=== PATIENT | male | born 1960 | race American Indian/Alaskan Native ===

== ENCOUNTER 2016-09-05 12:56 | Outpatient (CLI) | payer OTHER ==
--- NOTE | 2016-09-05 15:44 | Ultrasound Report ---
ABDOMINAL ULTRASOUND: 09/05/16 12:56:00 CLINICAL: Abdominal pain. FINDINGS: High-resolution ultrasound demonstrated an enlarged liver with moderate diffuse increased echogenicity. A hypoechoic irregular area in the lateral segment of the left lobe measures 1.9 x 1.6 x 2.0 cm. Normal hepatic vasculature and inferior vena cava. Normal gallbladder and bile ducts. Patellar wall measures 1.4 mm. The common bile duct measures 3.4 mm diameter. The pancreas was well imaged and normal Normal abdominal aorta. A normal spleen measured 8.9cm. Normal kidneys with normal echogenicity and normal non-dilated renal collecting systems and ureters. The right kidney measured 9.7 x 5.0 x 4.8cm. The left kidney measured 9.8 x 6.4 x 4.6cm. No renal mass or calculus. No ascites or mass. IMPRESSION: 1. Hepatic steatosis and hepatomegaly. 2. A 2 cm left hepatic mass is most likely a focus of fatty sparing. Consider CT or MRI for further evaluation. 3. No cholelithiasis.
== END 2016-09-05 12:57 | disposition home or self-care (01) ==
LOC: SPVWC 12:56
PROVIDERS: ATTEND Internal Medicine
DX: K76.0 Fatty (change of) liver, not elsewhere classified (principal); R16.0 Hepatomegaly, not elsewhere classified
CPT/HCPCS: 76700